=== PATIENT | female | born 1950 | race Caucasian/White ===

== ENCOUNTER 2018-09-04 09:30 | Emergency (ER) | payer OTHER ==
[~2018-09-04] VITALS: Ht 154.9 cm; Wt 86.2 kg
[2018-09-04 09:37] VITALS: BP_SYST 162
[2018-09-04] MEDS ORDERED: KETOROLAC TROMETHAMINE 30 MG VIAL IM ONE (10:00)
[2018-09-04 12:25] VITALS: BP_SYST 133
== END 2018-09-04 12:25 | disposition home or self-care (01) ==
LOC: SED 09:30
DX: S16.1XXA Strain of muscle, fascia and tendon at neck level, initial encounter (principal); S60.211A Contusion of right wrist, initial encounter; S00.03XA Contusion of scalp, initial encounter; S50.312A Abrasion of left elbow, initial encounter; J45.909 Unspecified asthma, uncomplicated; F32.9 Major depressive disorder, single episode, unspecified; R03.0 Elevated blood-pressure reading, without diagnosis of hypertension; Z90.89 Acquired absence of other organs; W01.0XXA Fall on same level from slipping, tripping and stumbling without subsequent striking against object, initial encounter; Y93.89 Activity, other specified; Y92.89 Other specified places as the place of occurrence of the external cause; Y99.8 Other external cause status
CPT/HCPCS: 70450; 72125; 73080; 73110; 96372; 99284; J1885

== ENCOUNTER 2020-02-16 04:25 | Observation (INO) | payer OTHER ==
[~2020-02-16] VITALS: Ht 154.9 cm; Wt 81.4 kg
[2020-02-16 04:25] VITALS: BP_SYST 135
--- NOTE | 2020-02-16 04:25 | NUR ---
Yoav more from home for evaluation
--- NOTE | 2020-02-16 04:25 | NUR ---
ER Dr. Laurent at bedside examining patient.
--- NOTE | 2020-02-16 04:25 | NUR ---
Patient to ER bed 1 to gown for evaluation. Side rails up with seizure pads.
--- NOTE | 2020-02-16 04:35 | NUR ---
Patient BIB ALS from home after having a tonic/clonic seizure about 30 mins prior to arrival that lasted about 1 minute. ALS reports daughter of patient originally heard her fall and came into the room and witnessed the seizure. Patient has a laceration on left side of mouth that occured from her fall at the start of seizure. Patient has a history of seizures and HTN but is not compliant with medications. Patient has had two incontinent episodes. ALS reports blood sugar on scene was 159.
--- NOTE | 2020-02-16 04:48 | NUR ---
Patient had a witnessed tonic/clonic seizure lasting about 1 min long. Patient placed on side, on 10L of O2, and suctioned mouth. MD at bedside.
[2020-02-16] MEDS ORDERED: ONDANSETRON HCL 4 MG/2 ML VIAL IVP ONE (05:00)
[2020-02-16] MEDS ORDERED: LORazepam 2 MG/ML VIAL IM ONE (05:00)
[2020-02-16] MEDS ORDERED: LORazepam 2 MG/ML VIAL ONE (05:15)
--- NOTE | 2020-02-16 05:15 | NUR ---
# 20 gauge angiocath placed to LAC. Use of asceptic technique. Opsite placed over site. Blood return noted. Flushed with 10 cc of normal saline. No evidence of infiltration noted. Patient tolerated well.
--- NOTE | 2020-02-16 05:22 | NUR ---
# 20 gauge angiocath placed to right wrist. Use of asceptic technique. Opsite placed over site. Blood return noted. Flushed with 10 cc of normal saline. No evidence of infiltration noted. Patient tolerated well.
[2020-02-16] MEDS ORDERED: LIDOCAINE/EPI 1% 1:100000 20 ML VIAL INJ ONE (05:30)
[2020-02-16 05:46] LABS: ANION GAP 15 (5-15); CALCIUM 9.1 mg/dL (8.4-11.0); CHLORIDE 100 mmol/L (98-107); POTASSIUM 3.8 mmol/L (3.5-5.1); SODIUM SERUM 137 mmol/L (136-145)
--- NOTE | 2020-02-16 05:50 | NUR ---
Patient transported to radiology via gurney, accompanied by Dilcia RN.
[2020-02-16 05:54] LABS: ALANINE AMINOTRANSFERASE 23 U/L (12-78); ALBUMIN 3.4 g/dL (3.4-4.8); ASPARTATE AMINOTRANSFERASE 20 U/L (10-37); CREATININE 1.33 mg/dL (0.55-1.30); GLUCOSE 164 mg/dL (70-99); UREA NITROGEN, BLOOD 24 mg/dL (8-21)
[2020-02-16 05:57] LABS: BASOPHILS # (AUTO) 0.1 K/uL (0.0-0.2); BASOPHILS % (AUTO) 0.4 % (0.0-2.0); EOSINOPHILS # (AUTO) 0.1 K/uL (0.0-0.4); EOSINOPHILS % (AUTO) 0.6 % (0.0-4.0); HEMATOCRIT 45.5 % (36-48); HEMOGLOBIN 15.2 g/dL (12.0-16.0); LYMPHOCYTES # (AUTO) 1.5 K/uL (1.0-5.5); LYMPHOCYTES % (AUTO) 10.5 % (20.5-51.5); MEAN CORPUSCULAR HEMOGLOBIN 32 pg (27-31); MEAN CORPUSCULAR HGB CONC 33 % (32-36); MEAN CORPUSCULAR VOLUME 94 fL (79.0-98.0); MONOCYTES # (AUTO) 1.1 K/uL (0.0-1.0); MONOCYTES % (AUTO) 7.9 % (1.7-9.3); NEUTROPHILS # (AUTO) 11.2 K/uL (1.8-7.7); NEUTROPHILS % (AUTO) 80.6 % (40.0-70.0); PLATELET COUNT (AUTO) 316 K/uL (130-430); RED BLOOD CELL COUNT(AUTO) 4.82 MIL/uL (4.2-6.2); WHITE BLOOD COUNT (AUTO) 13.9 K/uL (4.8-10.8)
[2020-02-16 06:12] LABS: TOTAL BILIRUBIN 0.1 mg/dL (0.0-1.0)
[2020-02-16] MEDS ORDERED: LOSA100T3 PO (06:12)
[2020-02-16] MEDS ORDERED: CARB200T PO (06:12)
[2020-02-16] MEDS ORDERED: LAMO200T2 PO (06:13)
--- NOTE | 2020-02-16 06:15 | NUR ---
Spoke with daughter of patient, Lori, and updated her on status of patient. Received medications patient takes on a daily basis. Contact information updated.
--- NOTE | 2020-02-16 06:16 | NUR ---
Medication reconciliation completed with information provided by patients daughter. Any prior medication reconciliation on file was reviewed and corrected.
--- NOTE | 2020-02-16 06:16 | NUR ---
Patient's code status is full code paperwork completed and placed in chart.
--- NOTE | 2020-02-16 06:19 | NUR ---
CALLED FOR A TELE BED FOR ADMISSION OF PATIENT. ORDERS RECEIEVED. WAITING ON BED ASSIGNMENT FROM CHARGE NURSE.
--- NOTE | 2020-02-16 06:20 | NUR ---
Dr. Laurent at bedside performing laceration repair.
--- NOTE | 2020-02-16 06:33 | NUR ---
Patient has a 4 cm laceration to LEFT CHEEK. Dr. PRINGLE applied 7 sutures using sterile technique. Edges well approximated. Site cleansed with PROVIODINE AND NORMAL SALINE. Dressing of STERILE GAUZE applied to site. No bleeding noted. Pt tolerated well.
--- NOTE | 2020-02-16 06:50 | NUR ---
Patient is resting in bed. On hearing aid specialist. Vital signs stable.
--- NOTE | 2020-02-16 07:12 | NUR ---
Report given to STIVEN Mckay for continuation of care.
--- NOTE | 2020-02-16 07:16 | NUR ---
Pt reassessed, stable, vitals WNL, tolerating O2 via nasal cannula. Pt currently resting, will continue to monitor.
--- NOTE | 2020-02-16 07:52 | NUR ---
Spoke to patient's daughter Lori, gave her an update on the patients admitting status.
--- NOTE | 2020-02-16 07:59 | NUR ---
BM, BEDPAN, PERICARE AND LINEN GOWN CHANGE; REMAINS ON SEIZURE PRECAUTIONS
--- NOTE | 2020-02-16 08:20 | NUR ---
Patient will be admitted to care of Dr. Lemons. Admitted to telementary unit. Will go to room 113a. Belongings list completed. Complete and up to date summary report printed. SBAR report to be given at bedside with opportunity for questions.
--- NOTE | 2020-02-16 08:26 | NUR ---
ADMISSION NOTE Received patient from ER via marce, received report from Nely SALEEM. Patient admitted with diagnosis of Seizure. Patient oriented to hospital routine, call light, toileting and safety-patient verbalized understanding.
[2020-02-16 08:39] VITALS: BP_SYST 142
--- NOTE | 2020-02-16 08:50 | NUR ---
EEG: PT RECEIVING EEG TESTING AT THIS TIME, TOLERATING WELL, WILL CONT' TO MONITOR AND ASSESS.
[2020-02-16 08:52] VITALS: BP_SYST 159
--- NOTE | 2020-02-16 08:58 | NUR ---
CONSULTATION PAGED REASON FOR CONSULTATION:SEIZURE WAS CONSULT CALLED?Y PERSON WHO WAS NOTIFIED:TEXT MESSAGED SADIA MACHUCA CONSULTING PHYSICIAN:SADIA MACHUCA PRESCHOOL AIDE SPECIALTY:NEURO PRESCHOOL AIDE PHONE NUMBER:[phone] REQUESTING PHYSICIAN:SOY RIVERA
[2020-02-16] MEDS ORDERED: ACETAMINOPHEN 325 MG TABLET PO PRN (09:00)
[2020-02-16] MEDS ORDERED: ALBUTEROL SULFATE 0.083% 2.5 MG/3 ML VIAL.NEB INH PRN (09:00)
[2020-02-16] MEDS ORDERED: LamoTRIgine 100 MG TABLET PO ONE (09:00)
[2020-02-16] MEDS ORDERED: LOSARTAN POTASSIUM 50 MG TABLET (COZAAR) PO ONE (09:00)
[2020-02-16] MEDS ORDERED: ONDANSETRON HCL 4 MG/2 ML VIAL IVP PRN (09:00)
[2020-02-16] MEDS ORDERED: LORazepam 2 MG/ML VIAL IVP PRN (09:00)
[2020-02-16] MEDS ORDERED: HYDROcodone/ACETAMIN 5-325 MG TAB (NORCO/ VICODIN) PO PRN (09:00)
--- NOTE | 2020-02-16 09:00 | NUR ---
ADMISSION: RECEIVED PT FROM ER, DX:INTERRUPTION OF NEUROTRANSMITTERS, R/T SEIZURE, PT AWAKE, LETHARGIC, HAS BRUISING WITH LACERATION TO LEFT SIDE FACE, WITH SUTURES INTACT, OPEN TO AIR, R/T S/P FALL DURING SZ ACTIVITY, VSS, AFEBRILE, IV SITE INTACT, PATENT, NO REDNESS OR SWELLING, SIDE RAILS PADDED UP X3, ROOM CLOSE TO NURSES STATION, CALL LIGHT PLACED WITHIN REACH, FREQUENT ROUNDING IMPLEMENTED, WILL CONT' TO MONITOR AND ASSESS.
[2020-02-16] MEDS: NACL 0.9% 1,000 ML IV SCH ×2 (10:51→22:08)
[2020-02-16 11:30] VITALS: BP_SYST 138
[2020-02-16 14:11] VITALS: BP_SYST 138
[2020-02-16 20:00] VITALS: BP_SYST 143
--- NOTE | 2020-02-16 20:00 | NUR ---
1909- received pt. awake on bed; alert and oriented x 2; on nasal cannula 2L/min noted; on carb controlled diet as ordered; on cardiac monitoring showing sinus rhythm; with left cheek stitches and bilateral upper arm erythema are noted ; with IVF NSS1L x 75 cc/hr via right hand; on seizure and fall precautions observed; siderails x 2 are up and padded; bed alarm is on; call light is within reach
[2020-02-16] MEDS: LamoTRIgine 100 MG TABLET PO SCH (21:40)
[2020-02-17 00:25] VITALS: BP_SYST 124
[2020-02-17 04:45] VITALS: BP_SYST 137
--- NOTE | 2020-02-17 07:16 | NUR ---
Nutrition Update Hima Scale 12 noted. Pt admitted for Seizures Diet: Cardiac BMI: 33.9 kg/m2 RD to follow per nutrition care standards.
[2020-02-17 07:26] LABS: BASOPHILS % (AUTO) 0.5 % (0.0-2.0); EOSINOPHILS # (AUTO) 0.1 K/uL (0.0-0.4); EOSINOPHILS % (AUTO) 1.2 % (0.0-4.0); HEMATOCRIT 39.2 % (36-48); HEMOGLOBIN 13.2 g/dL (12.0-16.0); LYMPHOCYTES # (AUTO) 2.1 K/uL (1.0-5.5); LYMPHOCYTES % (AUTO) 22.8 % (20.5-51.5); MEAN CORPUSCULAR HEMOGLOBIN 32 pg (27-31); MEAN CORPUSCULAR HGB CONC 34 % (32-36); MEAN CORPUSCULAR VOLUME 94 fL (79.0-98.0); MONOCYTES # (AUTO) 1.3 K/uL (0.0-1.0); MONOCYTES % (AUTO) 14.2 % (1.7-9.3); NEUTROPHILS # (AUTO) 5.6 K/uL (1.8-7.7); NEUTROPHILS % (AUTO) 61.3 % (40.0-70.0); PLATELET COUNT (AUTO) 266 K/uL (130-430); RED BLOOD CELL COUNT(AUTO) 4.19 MIL/uL (4.2-6.2); WHITE BLOOD COUNT (AUTO) 9.1 K/uL (4.8-10.8)
[2020-02-17 07:35] LABS: ALANINE AMINOTRANSFERASE 23 U/L (12-78); ALBUMIN 3.1 g/dL (3.4-4.8); ANION GAP 7 (5-15); ASPARTATE AMINOTRANSFERASE 21 U/L (10-37); CALCIUM 8.4 mg/dL (8.4-11.0); CHLORIDE 99 mmol/L (98-107); CREATININE 0.83 mg/dL (0.55-1.30); GLUCOSE 107 mg/dL (70-99); POTASSIUM 3.7 mmol/L (3.5-5.1); SODIUM SERUM 135 mmol/L (136-145); TOTAL BILIRUBIN 0.7 mg/dL (0.0-1.0); UREA NITROGEN, BLOOD 16 mg/dL (8-21)
--- NOTE | 2020-02-17 07:59 | NUR ---
initial notes rec patient awake and confused. pt pulled out iv and restarted by satish joshua. hob slightly elevated and close to the nurses station. resp easy and unlabored. no sob noted. bed to the lowest position and side rails up and locked. call light within reached and knows when to call for assistance.
[2020-02-17] MEDS: LOSARTAN POTASSIUM 50 MG TABLET (COZAAR) PO SCH ×2 (09:00→09:39)
--- NOTE | 2020-02-17 09:05 | NUR ---
rounds dressing changed on the right chest wall perma cath area done. seen by dr block at bedside
[2020-02-17] MEDS: LamoTRIgine 100 MG TABLET PO SCH (09:38)
[2020-02-17 09:40] VITALS: BP_SYST 125
--- NOTE | 2020-02-17 10:00 | NUR ---
rounds seen by dr mcgregor and dr shaista scott.
--- NOTE | 2020-02-17 11:00 | NUR ---
rounds pt's bp was elevated . offered bp med but refused. stated she takes those at night time. also stated if she can take home the med. explained to her that she needs to take it prior to d/c but stated she will take her dose tonight.
[2020-02-17 11:09] VITALS: BP_SYST 125
[2020-02-17 12:00] VITALS: BP_SYST 181
--- NOTE | 2020-02-17 12:25 | NUR ---
closing notes pt was discharged via wheelchair. daughter came to picking table worker patient. ivl was d/c and no bleeding noted. id band was removed. daughter was called by lauren re needing a picking table worker walker as per p.t. stable needs attended. instructed re seeing pmd as well and continue meds form home.
--- NOTE | 2020-02-17 19:15 | NUR ---
spoke with dr mckeon covering for dr dooley and relayed result of the bleeding scan no new order. satish able to start iv on the l forearm #22.
--- NOTE | 2020-02-20 14:03 | NUR ---
Discharge Follow Up Phone Call Phoned the number listed for patient, , on 02/18/20 and 02/20/20 and left voicemail messages without patient name identifiers. A woman returned the call and said we have the wrong number. Phoned patient's daughter, Lori [phone]. She stated patient's correct number is [phone]. Notified Tracie in Admitting to correct number. Lori stated that patient is doing well. She had been to the ED on 02/19/20 and received antibiotics. She then had a follow up appointment with her PCP, Dr Rhodes today. Patient's wound looked good. No questions or concerns.
== END 2020-02-17 12:25 | disposition home or self-care (01) ==
LOC: SED 04:25 → STU 06:16 → INTOOBSV 06:16 → STU 08:21
PROVIDERS: ADMIT Internal Medicine Hospice and Palliative Medicine; ATTEND Internal Medicine Hospice and Palliative Medicine
DX: G40.89 Other seizures (principal); S01.412A Laceration without foreign body of left cheek and temporomandibular area, initial encounter; I10 Essential (primary) hypertension; R41.0 Disorientation, unspecified; E03.9 Hypothyroidism, unspecified; F32.9 Major depressive disorder, single episode, unspecified; J45.20 Mild intermittent asthma, uncomplicated; Z79.899 Other long term (current) drug therapy; Z91.19 Patient's noncompliance with other medical treatment and regimen; Z91.14 Patient's other noncompliance with medication regimen
CPT/HCPCS: 12013; 36415 ×2; 70450; 71045; 80053 ×2; 80156; 82542; 83880; 84484; 85025 ×2; 87081; 93005; 95816; 96361; 96372; 96374; 97162; 99285; G0378 ×2; J2060; J7030

== ENCOUNTER 2020-02-19 15:34 | Emergency (ER) | payer OTHER ==
[~2020-02-19] VITALS: Ht 154.9 cm; Wt 90.7 kg
[~2020-02-19 15:34] MED LIST: CARB200T PO; LAMO200T2 PO; LOSA100T3 PO
--- NOTE | 2020-02-19 15:35 | NUR ---
Patient to ER bed 07 to gown for evaluation. Side rails up.
--- NOTE | 2020-02-19 15:40 | NUR ---
Pt brought by self , ambulatory, A&Ox4, pt presents to ER for follow up on sutures on L cheek, pt states she had sutures on monday and she noticed bleeding and swelling on the site today, skin pink and warm,pt afebrile.
[2020-02-19 15:47] VITALS: BP_SYST 140
--- NOTE | 2020-02-19 16:25 | NUR ---
Andrea frost in [facility] - 02/19/20 at 1625 by [email or web address] REZA Cottrell at bedside examining patient.
--- NOTE | 2020-02-19 16:25 | NUR ---
DR ALEXIS AT BEDSIDE FOR EVALUATION
[2020-02-19] MEDS ORDERED: cefTRIAXone 1 GM VIAL IM ONE (16:30)
--- NOTE | 2020-02-19 16:36 | NUR ---
Administered Rocephin IM as ordered by Dr. Cottrell. Patient tolerated the medications well. See eMAR for details.
--- NOTE | 2020-02-19 16:42 | NUR ---
Daughter Lori called and left phone number [phone]. She would like to be contacted when patient is ready to be discharged.
[2020-02-19 16:44] VITALS: BP_SYST 140
--- NOTE | 2020-02-19 16:45 | NUR ---
Patient given written and verbal discharge instructions and verbalizes understanding. ER MD discussed with patient the results and treatment provided. Patient in stable condition. ID arm band removed. Rx of Cephalexin given. Patient educated on pain management and to follow up with PMD. Pain Scale 0/10. Opportunity for questions provided and answered. Medication side effect fact sheet provided.
== END 2020-02-19 16:44 | disposition home or self-care (01) ==
LOC: SED 15:34
DX: S01.412D Laceration without foreign body of left cheek and temporomandibular area, subsequent encounter (principal); J45.909 Unspecified asthma, uncomplicated; I10 Essential (primary) hypertension; E03.9 Hypothyroidism, unspecified; X58.XXXD Exposure to other specified factors, subsequent encounter
CPT/HCPCS: 96372; 99283

== ENCOUNTER 2021-04-16 04:29 | Observation (INO) | payer OTHER, SELFPAY ==
[~2021-04-16] VITALS: Ht 154.9 cm; Wt 86.2 kg
[2021-04-16 04:29] VITALS: BP_SYST 148
--- NOTE | 2021-04-16 05:00 | NUR ---
Placed in room 2 . Placed on senior logistics manager, blood pressure machine and pulse oximeter. To gown for exam. Side rails up.
[2021-04-16] MEDS ORDERED: NACL 0.9% 1,000 ML IV ONE (05:30)
--- NOTE | 2021-04-16 05:30 | NUR ---
Dr. Coates at bedside
--- NOTE | 2021-04-16 05:40 | NUR ---
Pt BIB ALS from home c/o 2nd seizure. Per daughter patient is still ALOC, with a more prolonged postictal phase than normal. Pt is awake, nonverbal at this time. Per daughter pt is usually a/o x4.
--- NOTE | 2021-04-16 05:45 | NUR ---
# 20 gauge angiocath placed to PHAN. Use of asceptic technique. Opsite placed over site. Blood return noted. Flushed with 10 cc of normal saline. No evidence of infiltration noted. Patient tolerated well.
--- NOTE | 2021-04-16 06:15 | NUR ---
Pt WOODY to CT
--- NOTE | 2021-04-16 06:26 | NUR ---
back from CT
[2021-04-16 06:33] LABS: ANION GAP 3 (5-15); CALCIUM 8.9 mg/dL (8.4-11.0); CHLORIDE 104 mmol/L (98-107); CREATININE 0.92 mg/dL (0.55-1.30); GLUCOSE 124 mg/dL (70-99); POTASSIUM 4.2 mmol/L (3.5-5.1); SODIUM SERUM 138 mmol/L (136-145); UREA NITROGEN, BLOOD 22 mg/dL (8-21)
[2021-04-16 06:35] LABS: BASOPHILS # (AUTO) 0.1 K/uL (0.0-0.2); BASOPHILS % (AUTO) 0.4 % (0.0-2.0); EOSINOPHILS % (AUTO) 0.1 % (0.0-4.0); HEMATOCRIT 42.2 % (36-48); HEMOGLOBIN 14.5 g/dL (12.0-16.0); LYMPHOCYTES # (AUTO) 1.4 K/uL (1.0-5.5); MEAN CORPUSCULAR HEMOGLOBIN 33 pg (27-31); MEAN CORPUSCULAR HGB CONC 35 % (32-36); MEAN CORPUSCULAR VOLUME 95 fL (79.0-98.0); MONOCYTES # (AUTO) 0.9 K/uL (0.0-1.0); MONOCYTES % (AUTO) 7.1 % (1.7-9.3); NEUTROPHILS # (AUTO) 10.2 K/uL (1.8-7.7); NEUTROPHILS % (AUTO) 81.4 % (40.0-70.0); PLATELET COUNT (AUTO) 306 K/uL (130-430); RED BLOOD CELL COUNT(AUTO) 4.46 MIL/uL (4.2-6.2); RED CELL DISTRIBUTION WIDTH 12.9 % (9.0-15.0); WHITE BLOOD COUNT (AUTO) 12.5 K/uL (4.8-10.8)
[2021-04-16 06:49] LABS: ALANINE AMINOTRANSFERASE 15 U/L (12-78); ALBUMIN 3.6 g/dL (3.4-4.8); ASPARTATE AMINOTRANSFERASE 18 U/L (10-37); CARBAMAZEPINE (TEGRETOL) 11 ug/mL (4-12); TOTAL BILIRUBIN 0.3 mg/dL (0.0-1.0)
--- NOTE | 2021-04-16 07:10 | NUR ---
Report given to Marianne SALEEM.
--- NOTE | 2021-04-16 07:18 | NUR ---
PT RESTING IN BED, V/S STABLE, NO S/SX OF DISTRESS. PT IS AWAKE BUT CONFUSED AND NOT VERBALLY RESPONSING TO QUESTIONS BUT LISTENING TO SIMPLE COMMANDS.
--- NOTE | 2021-04-16 07:50 | NUR ---
ADMISSION ORDERS RECEIVED FROM DR. PARSONS
--- NOTE | 2021-04-16 07:56 | NUR ---
COVID SWAB DONE AND SENT TO LAB
--- NOTE | 2021-04-16 08:03 | NUR ---
Medication reconciliation completed with information provided by DAUGHTER RICHMOND. Any prior medication reconciliation on file was reviewed and corrected.
--- NOTE | 2021-04-16 08:03 | NUR ---
SW DAUGHTER RICHMOND FOR STATUS UPDATE
--- NOTE | 2021-04-16 08:09 | NUR ---
DR. PARSONS AT THE BEDSIDE EXAMINING PT
--- NOTE | 2021-04-16 08:37 | NUR ---
Patient will be admitted to care of DR. PARSONS. Admitted to TELE unit. Will go to room 114A. Belongings list completed. Complete and up to date summary report printed. SBAR report to be given at bedside with opportunity for questions.
--- NOTE | 2021-04-16 08:55 | NUR ---
RECEIVED PATIENT FROM ER VIA GURNEY. PATIENT UNABLE TO AMBULATE. AWAKE ALERT ORIENTED TO NAME ONLY. PATIENT STARES AT YOU WITH FLAT AFFECT WHEN ASKED QUESTIONS. SALINE LOCK #20 RIGHT UPPER ARM PATENT. SAFETY PRECAUTIONS IN PLACE WILL CONTINUE TO MONITOR.
--- NOTE | 2021-04-16 09:36 | NUR ---
CONSULTATION PAGED/CALLED Reason for Consultation: [] recurrent seizures Person Who was Notified: [] Dr Shaikh Consulting Physician: [] DR SHAIKH Automotive Service Assistant Specialty: [] NEURO Ordering Physician: [] DR PARSONS
[2021-04-16] MEDS: D5NS 1,000 ML IV SCH ×2 (09:54→22:24)
[2021-04-16] MEDS ORDERED: LORazepam 2 MG/ML VIAL IVP PRN (10:15)
[2021-04-16] MEDS ORDERED: levETIRAcetam 500 MG in NS 100 ML IV ONE (11:00)
[2021-04-16 13:27] VITALS: BP_SYST 158
[2021-04-16 14:47] VITALS: BP_SYST 155
[2021-04-16 15:20] VITALS: BP_SYST 96
[2021-04-16 16:59] VITALS: BP_SYST 121
--- NOTE | 2021-04-16 17:29 | NUR ---
ATTENDING MD DR PARSONS WAS CALLED, RE: DIET ORDER, PT IS AWAKE. SPOKE TO KAI.
--- NOTE | 2021-04-16 19:30 | NUR ---
Opening notes Received report. Patient is resting in bed, no signs of distress noted. Breathing even and unlabored on room air. IV patent and intact, infusing fluids. Patient stating she is hungry. Dr. Shaikh made rounds and informed. Orders received for regular diet. Swallowing screen provided to patient. Patient able to swallow with no signs of aspiration noted. Provided patient with sandwich, jello and pudding. No other needs. Call light with the patient. Safety precautions in place.
[2021-04-16 20:00] VITALS: BP_SYST 108
[2021-04-16] MEDS: LamoTRIgine 100 MG TABLET PO SCH (20:17)
--- NOTE | 2021-04-16 22:18 | NUR ---
BSC Patient up to bedside commode, minimal assistance required. Patient voided and provided self with hygiene care. Patient back to bed. No other needs at this time. Call light with the patient. Safety precautions in place. Seizure precautions in place.
[2021-04-16] MEDS: levETIRAcetam 500 MG in NS 100 ML IV SCH (22:24)
[2021-04-17 01:02] VITALS: BP_SYST 116
--- NOTE | 2021-04-17 03:33 | NUR ---
RN rounds Patient resting in bed, no signs of distress noted. Breathing even and unlabored on room air. IVF infusing well. Call light with the patient. Safety precautions in place.
--- NOTE | 2021-04-17 06:36 | NUR ---
Closing notes Patient is resting in bed, no signs of distress noted. Breathing even and unlabored on room air. No seizure activity noted throughout the shift. IV patent and intact, no signs of infiltration noted. All needs met throughout the shift. Call light with the patient. Safety precautions in place. Will endorse care to day shift RN.
[2021-04-17 07:55] VITALS: BP_SYST 145
--- NOTE | 2021-04-17 08:00 | NUR ---
Patient is resting in bed, no signs of distress noted. Breathing even and unlabored on room air. IV patent and intact, infusing fluids. Patient stating she is hungry. Call light with the patient. Safety precautions in place. Will continue to monitor
[2021-04-17] MEDS: LamoTRIgine 100 MG TABLET PO SCH (08:34)
[2021-04-17] MEDS: levETIRAcetam 500 MG in NS 100 ML IV SCH (11:06)
--- NOTE | 2021-04-17 11:06 | NUR ---
IV ADMINISTRATION END TIME (Observation Patients ONLY):
[2021-04-17] MEDS ORDERED: HYDROcodone/ACETAMIN 10-325 MG TAB PO PRN (11:15)
[2021-04-17] MEDS ORDERED: LORazepam 2 MG/ML VIAL IVP PRN (11:15)
[2021-04-17] MEDS ORDERED: ACETAMINOPHEN 325 MG TABLET PO PRN (11:15)
[2021-04-17] MEDS ORDERED: HYDROcodone/ACETAMIN 5-325 MG TAB (NORCO/ VICODIN) PO PRN (11:15)
[2021-04-17] MEDS ORDERED: ONDANSETRON HCL 4 MG/2 ML VIAL IVP PRN (11:15)
[2021-04-17] MEDS ORDERED: NALOXONE HCL 0.4 MG/ML AMP (NARCAN) IVP PRN ×2 (11:15)
[2021-04-17 12:13] VITALS: BP_SYST 124
[2021-04-17] MEDS ORDERED: NORMAL SALINE 5 ML DISP.SYRIN IVF SCH ×2 (14:00)
[2021-04-17 14:18] VITALS: BP_SYST 124
[2021-04-17 15:26] VITALS: BP_SYST 107
[2021-04-17] MEDS ORDERED: LamoTRIgine 100 MG TABLET PO SCH (21:00)
[2021-04-18] MEDS ORDERED: LOSARTAN POTASSIUM 50 MG TABLET (COZAAR) PO SCH (09:00)
--- NOTE | 2021-04-22 09:54 | NUR ---
IV ADMINISTRATION END TIME (Observation Patients ONLY): Addendum: 04/22/21 at 1122 by Miriam Jones RN LATE ENTRY 04/16/21 AT 0954 IV ADMINISTRATION END TIME (OBSERVATION ONLY)
--- NOTE | 2021-04-22 11:23 | NUR ---
LATE ENTRY 04/16/21 AT 2224 IV ADMINISTRATION END TIME (Observation Patients ONLY)
--- NOTE | 2021-04-22 11:25 | NUR ---
LATE ENTRY 04/16/21 AT 1204 IV ADMINISTRATION END TIME (Observation Patients ONLY):
--- NOTE | 2021-04-22 11:27 | NUR ---
LATE ENTRY 04/16/21 AT 2224 IV ADMINISTRATION END TIME (Observation Patients ONLY):
--- NOTE | 2021-04-27 08:59 | NUR ---
IV ADMINISTRATION END TIME (Observation Patients ONLY): Late entry: IV infusion of Levetiracetam started at 12:04 on 04/16/21 and ended at 12:35 04/16/21 . IV infusion of Levetiracetam started at 22:24 on 04/16/21 and ended at 23:00 04/16/21 . IV infusion of Levetiracetam started at 11:06 on 04/17/21 and ended at 11:36 04/17/21 .
--- NOTE | 2021-04-27 09:06 | NUR ---
IV ADMINISTRATION END TIME (Observation Patients ONLY): Late Entry: IV infusion of Dextrose/Sodium Chloride started at 09:54 on 04/16/21 and ended at 22:20 04/16/21. IV infusion of Dextrose/Sodium Chloride started at 22:24 on 04/16/21 and ended at 15;43 04/17/21 prior to patient discharge
== END 2021-04-17 15:43 | disposition home or self-care (01) ==
LOC: SED 04:29 → STU 07:50 → INTOOBSV 07:50 → STU 08:23
PROVIDERS: ADMIT Internal Medicine Hospice and Palliative Medicine; ATTEND Internal Medicine Hospice and Palliative Medicine
DX: G40.909 Epilepsy, unspecified, not intractable, without status epilepticus (principal); Z20.822 Contact with and (suspected) exposure to COVID-19; J45.909 Unspecified asthma, uncomplicated; I10 Essential (primary) hypertension; E03.9 Hypothyroidism, unspecified; F32.9 Major depressive disorder, single episode, unspecified; R40.4 Transient alteration of awareness; Z79.899 Other long term (current) drug therapy
CPT/HCPCS: 36415; 70450; 76376; 80053; 80156; 85025; 87426; 93005; 95816; 96361; 96365; 96366 ×2; 99285; G0378 ×2; J1953; 96360

== ENCOUNTER 2024-03-27 09:22 | Emergency (ER) | payer OTHER ==
[~2024-03-27] VITALS: Ht 149.9 cm; Wt 90.7 kg
[~2024-03-27 09:22] MED LIST changes: +LOSA-415 PO; -LOSA100T3 PO; +SYN50 PO
[2024-03-27 09:31] VITALS: BP_SYST 136; PULSE 67; RESP 18; TEMP 98.1
[2024-03-27 10:50] LABS: BASOPHILS % (AUTO) 0.4 % (0.0-2.0); EOSINOPHILS # (AUTO) 0.3 K/uL (0.0-0.4); EOSINOPHILS % (AUTO) 3.2 % (0.0-4.0); HEMATOCRIT 45.8 % (36-48); HEMOGLOBIN 15.3 g/dL (12.0-16.0); LYMPHOCYTES # (AUTO) 1.5 K/uL (1.0-5.5); MEAN CORPUSCULAR HEMOGLOBIN 31 pg (27-31); MEAN CORPUSCULAR HGB CONC 33 % (32-36); MEAN CORPUSCULAR VOLUME 94 fL (79.0-98.0); MONOCYTES % (AUTO) 10.6 % (1.7-9.3); NEUTROPHILS # (AUTO) 6.4 K/uL (1.8-7.7); NEUTROPHILS % (AUTO) 69.8 % (40.0-70.0); PLATELET COUNT (AUTO) 273 K/uL (130-430); RED BLOOD CELL COUNT(AUTO) 4.88 MIL/uL (4.2-6.2); RED CELL DISTRIBUTION WIDTH 13.2 % (9.0-15.0); WHITE BLOOD COUNT (AUTO) 9.2 K/uL (4.8-10.8)
[2024-03-27 11:30] LABS: BILIRUBIN,URINE NEGATIVE (NEGATIVE); BLOOD, URINE 1+ (NEGATIVE); CLARITY/URINE CLEAR (CLEAR); COLOR,URINE YELLOW (YELLOW); GLUCOSE,URINE NEGATIVE (NEGATIVE); KETONES,URINE NEGATIVE (NEGATIVE); LEUKOCYTE ESTERASE ,URINE 1+ (NEGATIVE); NITRITE, URINE NEGATIVE (NEGATIVE); PH,URINE 7.5 (5.0-8.0); PROTEIN URINE TRACE (NEGATIVE); UROBILINOGEN,URINE 0.2 (0.2-1.0)
[2024-03-27 11:40] LABS: BACTERIA,URINE FEW /HPF (None Seen); MUCUS,URINE 1+ /LPF (None Seen)
[2024-03-27 11:41] LABS: ALANINE AMINOTRANSFERASE 17 U/L (12-78); ALBUMIN 3.3 g/dL (3.4-4.8); ANION GAP 8 (5-15); ASPARTATE AMINOTRANSFERASE 17 U/L (10-37); BILIRUBIN,DIRECT 0.1 mg/dL (0.0-0.3); CALCIUM 9.5 mg/dL (8.4-11.0); CARBON DIOXIDE 27 mmol/L (23-29); CHLORIDE 105 mmol/L (98-107); CREATININE 0.96 mg/dL (0.55-1.30); GLUCOSE 108 mg/dL (74-106); LIPASE 34 U/L (16-77); POTASSIUM 4.1 mmol/L (3.5-5.1); SODIUM SERUM 140 mmol/L (136-145); TOTAL BILIRUBIN 0.6 mg/dL (0.0-1.0); TOTAL PROTEIN, SERUM 7.5 g/dL (6.4-8.3); UREA NITROGEN, BLOOD 20 mg/dL (8-21)
[2024-03-27] MEDS ORDERED: CEPH-548 PO (12:56)
[2024-03-27 13:07] VITALS: BP_SYST 136; PULSE 67; RESP 18; TEMP 98.1
== END 2024-03-27 13:07 | disposition home or self-care (01) ==
LOC: SED 09:22
DX: N39.0 Urinary tract infection, site not specified (principal); K92.1 Melena; N20.0 Calculus of kidney; J45.909 Unspecified asthma, uncomplicated; I10 Essential (primary) hypertension; E03.9 Hypothyroidism, unspecified; F32.A Depression, unspecified; Z79.899 Other long term (current) drug therapy; Z79.2 Long term (current) use of antibiotics
CPT/HCPCS: 36415; 80048; 80076; 81000; 81001; 81015; 83690; 85025; 87086; 99284